=== PATIENT | female | born 1970 | race Caucasian/White ===

== ENCOUNTER → 2020-01-27 08:29 | Outpatient (BNVA) | payer OTHER, SELFPAY | PROVIDERS: Visit Provider Nurse Practitioner | DX: F31.62 Bipolar disorder, current episode mixed, moderate (principal) | CPT/HCPCS: 99214 ==

== ENCOUNTER → 2020-02-24 08:29 | Outpatient (BNVA) | payer OTHER, SELFPAY | PROVIDERS: Visit Provider Nurse Practitioner | DX: F31.62 Bipolar disorder, current episode mixed, moderate (principal) | CPT/HCPCS: 99214 ==

== ENCOUNTER → 2020-03-22 08:40 | Outpatient (BNVA) | payer OTHER, SELFPAY | PROVIDERS: Visit Provider Psychiatry & Neurology Psychiatry | DX: F41.1 Generalized anxiety disorder (principal); F33.2 Major depressive disorder, recurrent severe without psychotic features; F43.12 Post-traumatic stress disorder, chronic | CPT/HCPCS: 99204 ==

== ENCOUNTER → 2020-04-19 07:52 | Outpatient (BNVA) | payer OTHER, SELFPAY | PROVIDERS: Visit Provider Nurse Practitioner | DX: F41.1 Generalized anxiety disorder (principal); F31.62 Bipolar disorder, current episode mixed, moderate | CPT/HCPCS: 99214 ==

== ENCOUNTER → 2020-05-09 08:04 | Outpatient (BNVA) | payer OTHER, SELFPAY | PROVIDERS: PCP Physician Assistant; Visit Provider Social Worker Clinical | DX: F41.1 Generalized anxiety disorder (principal); F33.2 Major depressive disorder, recurrent severe without psychotic features | CPT/HCPCS: 90791 ==

== ENCOUNTER → 2020-05-16 08:38 | Outpatient (BNVA) | payer OTHER, SELFPAY | PROVIDERS: PCP Physician Assistant; Visit Provider Social Worker Clinical | DX: F33.2 Major depressive disorder, recurrent severe without psychotic features (principal); F41.1 Generalized anxiety disorder; F31.62 Bipolar disorder, current episode mixed, moderate | CPT/HCPCS: 90834 ==

== ENCOUNTER → 2020-05-25 08:28 | Outpatient (BNVA) | payer OTHER, SELFPAY | PROVIDERS: PCP Physician Assistant; Visit Provider Social Worker Clinical | DX: F33.2 Major depressive disorder, recurrent severe without psychotic features (principal); F41.1 Generalized anxiety disorder; F31.62 Bipolar disorder, current episode mixed, moderate | CPT/HCPCS: 90834 ==

== ENCOUNTER → 2020-06-01 08:34 | Outpatient (BNVA) | payer OTHER, SELFPAY | PROVIDERS: PCP Physician Assistant; Visit Provider Social Worker Clinical | DX: F33.2 Major depressive disorder, recurrent severe without psychotic features (principal); F41.1 Generalized anxiety disorder; F31.62 Bipolar disorder, current episode mixed, moderate | CPT/HCPCS: 90834 ==

== ENCOUNTER → 2020-06-08 10:21 | Outpatient (BNVA) | payer OTHER, SELFPAY | PROVIDERS: PCP Physician Assistant; Visit Provider Social Worker Clinical | DX: F33.2 Major depressive disorder, recurrent severe without psychotic features (principal); F41.1 Generalized anxiety disorder; F31.62 Bipolar disorder, current episode mixed, moderate | CPT/HCPCS: 90834 ==

== ENCOUNTER → 2020-06-09 09:28 | Outpatient (BNVA) | payer OTHER, SELFPAY | PROVIDERS: PCP Physician Assistant; Visit Provider Nurse Practitioner | DX: F41.1 Generalized anxiety disorder (principal); F31.62 Bipolar disorder, current episode mixed, moderate | CPT/HCPCS: 90832; 99213 ==

== ENCOUNTER → 2020-06-15 09:36 | Outpatient (BNVA) | payer OTHER, SELFPAY | PROVIDERS: PCP Physician Assistant; Visit Provider Social Worker Clinical | DX: F33.2 Major depressive disorder, recurrent severe without psychotic features (principal); F41.1 Generalized anxiety disorder; F31.62 Bipolar disorder, current episode mixed, moderate | CPT/HCPCS: 90834 ==

== ENCOUNTER → 2020-06-22 09:49 | Outpatient (BNVA) | payer OTHER, SELFPAY | PROVIDERS: PCP Physician Assistant; Visit Provider Social Worker Clinical | DX: F33.2 Major depressive disorder, recurrent severe without psychotic features (principal); F41.1 Generalized anxiety disorder; F31.62 Bipolar disorder, current episode mixed, moderate | CPT/HCPCS: 90834 ==

== ENCOUNTER → 2020-06-29 08:48 | Outpatient (BNVA) | payer OTHER, SELFPAY | PROVIDERS: PCP Physician Assistant; Visit Provider Social Worker Clinical | DX: F33.2 Major depressive disorder, recurrent severe without psychotic features (principal); F41.1 Generalized anxiety disorder; F31.62 Bipolar disorder, current episode mixed, moderate | CPT/HCPCS: 90834 ==

== ENCOUNTER → 2020-07-06 08:53 | Outpatient (BNVA) | payer OTHER, SELFPAY | PROVIDERS: PCP Physician Assistant; Visit Provider Social Worker Clinical | DX: F33.2 Major depressive disorder, recurrent severe without psychotic features (principal); F41.1 Generalized anxiety disorder; F31.62 Bipolar disorder, current episode mixed, moderate | CPT/HCPCS: 90834 ==

== ENCOUNTER → 2020-07-13 08:10 | Outpatient (BNVA) | payer OTHER, SELFPAY | PROVIDERS: PCP Physician Assistant; Visit Provider Social Worker Clinical | DX: F33.2 Major depressive disorder, recurrent severe without psychotic features (principal); F41.1 Generalized anxiety disorder; F31.62 Bipolar disorder, current episode mixed, moderate | CPT/HCPCS: 90834 ==

== ENCOUNTER → 2020-07-27 08:40 | Outpatient (BNVA) | payer OTHER, SELFPAY | PROVIDERS: PCP Physician Assistant; Visit Provider Social Worker Clinical | DX: F33.2 Major depressive disorder, recurrent severe without psychotic features (principal); F41.1 Generalized anxiety disorder; F31.62 Bipolar disorder, current episode mixed, moderate | CPT/HCPCS: 90834 ==

== ENCOUNTER → 2020-08-04 08:20 | Outpatient (BNVA) | payer OTHER, SELFPAY | PROVIDERS: PCP Physician Assistant; Visit Provider Nurse Practitioner | DX: F41.1 Generalized anxiety disorder (principal); F31.62 Bipolar disorder, current episode mixed, moderate | CPT/HCPCS: 99214 ==

== ENCOUNTER → 2020-08-10 08:18 | Outpatient (BNVA) | payer OTHER, SELFPAY | PROVIDERS: PCP Physician Assistant; Visit Provider Social Worker Clinical | DX: F33.2 Major depressive disorder, recurrent severe without psychotic features (principal); F41.1 Generalized anxiety disorder; F31.62 Bipolar disorder, current episode mixed, moderate | CPT/HCPCS: 90834 ==

== ENCOUNTER → 2020-09-22 08:28 | Outpatient (BNVA) | payer OTHER, SELFPAY | PROVIDERS: PCP Physician Assistant; Visit Provider Nurse Practitioner | DX: F41.1 Generalized anxiety disorder (principal); F31.62 Bipolar disorder, current episode mixed, moderate | CPT/HCPCS: 99213 ==

== ENCOUNTER → 2020-11-14 08:37 | Outpatient (BNVA) | payer OTHER, SELFPAY | PROVIDERS: PCP Physician Assistant; Visit Provider Nurse Practitioner | DX: F31.62 Bipolar disorder, current episode mixed, moderate (principal); F41.1 Generalized anxiety disorder; F33.2 Major depressive disorder, recurrent severe without psychotic features | CPT/HCPCS: 99214 ==

== ENCOUNTER 2020-12-15 14:57 | Outpatient (CLI) | payer OTHER, SELFPAY ==
--- NOTE | 2020-12-15 | XR_ITS ---
WS: [id number] SCREENING DEXA SCAN [facility] CLINICAL INFORMATION: POST MONOPAUSAL COMPARISON: 018 FINDINGS: The L1-L4 bone mineral density measures 0.950 g/cm2. This corresponds to a T score score of -1.9 and Z score of -2.7. Left femoral neck bone mineral density measures 0.887 g/cm2. This corresponds to a T score of -1.0 an d Z score of -1.3. Right femoral neck bone mineral density measures 0.844 g/cm2. This corresponds to a T score -1.3of an d Z score of -1.7. Mean femoral neck bone mineral density measures 0.866 g/cm2. This corresponds to a T score of -1.1 an d Z score of -1.5. XR/XR DEXA axial skeleton* [id number] IMPRESSION: Osteopenia Patient's FRAX calculated 10 year probability for major osteoporotic fracture i s 7.1 % and osteoporotic hip fracture is 0.5%.
--- NOTE | 2020-12-15 14:59 | MM_ITS ---
WS: [id number] BILATERAL SCREENING DIGITAL MAMMOGRAM WITH CAD HISTORY: SCREENING COMPARISON: None available. Bilateral CC and MLO views submitted. Computer aided detection analyzed. Breast composition: The breasts are almost entirely fatty. No suspicious masses, microcalcifications or architectural distortion. MM/[place] [id number] IMPRESSION: BI-RADS: 1-Negative FOLLOW UP: 1 Year Follow-up
== END 2020-12-15 14:58 | disposition home or self-care (01) ==
PROVIDERS: PCP Nurse Practitioner Family; Visit Provider Nurse Practitioner Family
DX: Z12.31 Encounter for screening mammogram for malignant neoplasm of breast (principal); Z78.0 Asymptomatic menopausal state; M85.88 Other specified disorders of bone density and structure, other site
CPT/HCPCS: 77067; 77080

== ENCOUNTER → 2021-01-09 10:12 | Outpatient (BNVA) | payer OTHER, SELFPAY | PROVIDERS: PCP Nurse Practitioner Family; Visit Provider Nurse Practitioner | DX: F31.62 Bipolar disorder, current episode mixed, moderate (principal); F41.1 Generalized anxiety disorder; F33.2 Major depressive disorder, recurrent severe without psychotic features | CPT/HCPCS: 99214 ==

== ENCOUNTER → 2021-01-17 11:36 | Outpatient (BNVA) | payer OTHER, SELFPAY | PROVIDERS: PCP Nurse Practitioner Family; Referring Provider Nurse Practitioner Family; Visit Provider Podiatrist Foot & Ankle Surgery | DX: M65.9 Synovitis and tenosynovitis, unspecified (principal); M25.571 Pain in right ankle and joints of right foot | CPT/HCPCS: 73630 ==

== ENCOUNTER 2021-01-17 14:59 | Outpatient (CLI) | payer OTHER, SELFPAY | END 2021-01-17 15:00 | disposition home or self-care (01) | LOC: SPT 15:00 | PROVIDERS: PCP Nurse Practitioner Family; Visit Provider Podiatrist Foot & Ankle Surgery | DX: Z46.89 Encounter for fitting and adjustment of other specified devices (principal); M65.9 Synovitis and tenosynovitis, unspecified; M25.571 Pain in right ankle and joints of right foot | CPT/HCPCS: 97760; L4361 ==

== ENCOUNTER → 2021-03-03 08:17 | Outpatient (BNVA) | payer OTHER, SELFPAY | PROVIDERS: PCP Nurse Practitioner Family; Visit Provider Nurse Practitioner | DX: F41.1 Generalized anxiety disorder (principal); F31.62 Bipolar disorder, current episode mixed, moderate; F50.81 Binge eating disorder | CPT/HCPCS: 99214 ==

== ENCOUNTER 2022-02-16 13:20 | Outpatient (CLI) | payer OTHER, SELFPAY ==
--- NOTE | 2022-02-16 13:25 | MM_ITS ---
WS: [id number] BILATERAL 3D TOMOSYNTHESIS DIGITAL SCREENING MAMMOGRAPHY WITH CAD CLINICAL INFORMATION: SCREENING HISTORY: Screening mammogram. No current complaints. COMPARISON: December 15, 2020 TECHNIQUE: Bilateral CC and MLO views. FINDINGS: Scattered fibroglandular densities bilaterally. No suspicious focal mass, asymmetry, calcifications, or architectural distortion. No evidence of malignancy. MM/[place] [id number] IMPRESSION: BI-RADS: 1-Negative FOLLOW UP: 1 Year Follow-up Recommend return to annual screening mammography.
== END 2022-02-16 13:21 | disposition home or self-care (01) ==
LOC: RAD 13:21
PROVIDERS: PCP Nurse Practitioner Family; Visit Provider Nurse Practitioner Family
DX: Z12.31 Encounter for screening mammogram for malignant neoplasm of breast (principal)
CPT/HCPCS: 77063; 77067

== ENCOUNTER → 2022-11-25 10:36 | Outpatient (BNVA) | payer OTHER, SELFPAY | PROVIDERS: PCP Nurse Practitioner Family; Visit Provider Family Medicine | DX: N12 Tubulo-interstitial nephritis, not specified as acute or chronic (principal) | CPT/HCPCS: 81000 ==

== ENCOUNTER → 2022-12-27 09:59 | Outpatient (BNVA) | payer OTHER, SELFPAY | PROVIDERS: PCP Nurse Practitioner Family; Referring Provider Nurse Practitioner Family; Visit Provider Student in an Organized Health Care Education/Training Program | DX: M20.012 Mallet finger of left finger(s) (principal) | CPT/HCPCS: 73140 ==

== ENCOUNTER 2023-11-26 08:56 | Emergency (ER) | payer OTHER, SELFPAY ==
--- NOTE | 2023-11-26 09:05 | W.ED.ABDPA2 ---
HPI - Abdominal Pain General: Chief Complaint: Abdominal Pain Stated Complaint: abd pain Time Seen by Provider: 11/26/23 08:57 Source: patient Mode of arrival: ambulatory Limitations: no limitations History of Present Illness: Patient is a very nice 53-year-old female presents to ED today with a complaint of right-sided abdominal pain. Patient states she has been dealing with this pain over the past month and states it is progressively worsening. She states she has been seen [facility] but feels like they are dragging their feet when it comes to evaluating her discomfort. She states she has never had blood work or imaging performed. Patient is concerned as pain is progressively worsening and now limiting her physical activity. 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 Patient is not having any nausea or vomiting. She was told at [facility] that she could be constipated so did do a bowel prep regimen about a week ago and states she has had some diarrhea since then. No bloody stools. She has not been running fevers. Previous abdominal surgeries include a gastric sleeve, appendectomy, cholecystectomy, hysterectomy/oophorectomy. She states she has a family history of stomach and ovarian cancers. MD elicited complaint: abdominal pain Pertinent past history: none Onset (ago): week(s) Pain Consistency: constant (with exacerbations) Location: RUQ Severity: moderate Radiation: none Migration to: no migration Exacerbating factors: eating (sometimes worsens pain) Relieving factors: nothing Associated Symptoms: Denies chills, constipation, dysuria, fever(s), hematochezia, hematemesis, melena, nausea and vomiting Related Data: Patient : No Review of Systems Const: Denies: fever(s), chills, body aches, fatigue or malaise Card: Denies: chest pain Resp: Denies: dyspnea GI: Reports: abdominal pain; Denies: nausea, vomiting, hematemesis, constipation, pain on defecation, rectal pain, hematochezia or melena : Denies: flank pain, difficulty voiding, dysuria, urinary frequency, urinary urgency or urinary hesitancy Musc: Denies: neck pain, back pain, extremity pain or joint pain Skin/Breast: Denies: rash Neuro: Denies: headache(s), numbness in extremities, weakness in extremities, sensory changes or dizziness [facility] ED PFSH: Medical History ADHD (attention deficit hyperactivity disorder), combined type Psychiatric care Binge-eating disorder, severe Bipolar disorder, current episode mixed, moderate Social History Smoking and tobacco/nicotine status: never used tobacco/nicotine Current gender identity: Female Physical Exam Const: COMMON NORMALS: no acute distress, average body habitus, patient oriented x3, no limitations, healthy appearing, alert and well nourished Eye: COMMON NORMALS: no scleral icterus Resp: COMMON NORMALS: normal respiratory effort and clear to auscultation bilaterally AUSCULTATION: clear to auscultation bilaterally Cardio: COMMON NORMALS: regular rate and regular rhythm RATE: regular rate RHYTHM: regular rhythm GI: COMMON NORMALS: Normal to inspection, nondistended, normoactive bowel sounds present, Soft to palpation, No hepatosplenomegaly present and no masses INSPECTION: Yes normal to inspection AUSCULTATION: Yes normoactive bowel sounds PALPATION: Yes Soft to palpation, Yes Tenderness to palpation present (GI) Details: RLQ and RUQ and Yes No hepatosplenomegaly present : COMMON NORMALS: Yes no CVA tenderness BLADDER/KIDNEY EXAM: Yes no CVA tenderness Back/Pelvis: COMMON NORMALS: no CVA tenderness Extremity: GENERAL: Yes normal exam except as noted Neuro: ROYAL COMA SCALE: document GCS findings [place] coma scale eye opening: Spontaneous [place] coma scale verbal response: Orientated [place] coma scale motor response: Obey commands [place] coma scale total score: 15 COMMON NORMALS: patient oriented x3 SENSORIUM/ORIENTATION: Yes alert Skin: COMMON NORMALS: no rashes or lesions noted GENERAL SKIN EXAM: no rashes or lesions noted Course Vital Signs: Vital signs: Vital Signs Temperature 98.7 F 11/26/23 09:08 Pulse Rate 83 11/26/23 09:38 Respiratory Rate 16 11/26/23 09:38 Blood Pressure 137/91 11/26/23 09:38 Pulse Oximetry 100 11/26/23 09:38 Oxygen Delivery Me thod Room Air 11/26/23 09:38 MDM - Abdominal Pain Medical Decision Making Blood work is completely unremarkable. Her vital signs are normal. CT scan of her abdomen/pelvis is unremarkable. She questions whether she may have developed a stomach ulcer as she states she took some Aleve and steroids for a bout of pneumonia approximately a month ago which she states she is not supposed to do given her gastric sleeve. She does feel like pain somewhat worsens with eating. I think it is reasonable to trial her on some Protonix. She is agreeable to this plan. Recommend follow-up with primary care in 1 to 2 weeks so they can reassess symptoms. I think it is also reasonable to consider an endoscopy at some point. Medical Records I reviewed the patient's medical records. Lab Data I reviewed the patient's lab results. 11/26/23 09:22 11/26/23 09:22 Labs/Radiology: Laboratory Results WBC 4.42 10^3/uL (3.29-11.43) 11/26/23 09:22 RBC 5.21 10^6/uL (3.85-5.65) 11/26/23 09:22 Hgb 14.60 g/dL (11.27-16.99) 11/26/23 09:22 Hct 45.8 % (36-47) 11/26/23 09:22 MCV 87.9 fl (85-98) 11/26/23 09:22 MCH 28.0 pg (27-33) 11/26/23 09:22 MCHC 31.9 g/dL (30-55) 11/26/23 09:22 RDW 12.0 % (12.1-15.1) L 11/26/23 09:22 Plt Count 244 10^3/cmm (157-399) 11/26/23 09:22 MPV 10.7 fL (7.4-10.4) H 11/26/23 09:22 Neut % (Auto) 60.0 % 11/26/23 09:22 Lymph % (Auto) 30.3 % 11/26/23 09:22 [place] % (Auto) 6.1 % 11/26/23 09:22 Eos % (Auto) 2.3 % 11/26/23 09:22 Baso % (Auto) 1.1 % 11/26/23 09:22 Neut # (Auto) 2.65 10^3/uL (1.8-7.7) 11/26/23 09:22 Lymph # (Auto) 1.3 10^3/uL (0.8-4.8) 11/26/23 09:22 [place] # (Auto) 0.3 10^3/uL (0.2-0.9) 11/26/23 09:22 Eos # (Auto) 0.1 10^3/uL (0.0-0.8) 11/26/23 09:22 Baso # (Auto) 0.1 10^3/uL (0.0-0.1) 11/26/23 09:22 Nucleated RBC % (auto) 0 % 11/26/23 09:22 Nucleated RBCs # 0.0 /100WBC 11/26/23 09:22 Sodium 139 mmol/L (136-145) 11/26/23 09:22 Potassium 3.8 mmol/L (3.5-5.1) 11/26/23 09:22 Chloride 104 mmol/L (98-107) 11/26/23 09:22 Carbon Dioxide 27 mmol/L (22-29) 11/26/23 09:22 Anion Gap 11.8 (5-19) 11/26/23 09:22 BUN 8 mg/dL (6-20) 11/26/23 09:22 Creatinine 0.6 mg/dL (0.5-0.9) 11/26/23 09:22 GFR Calculation 105.0 mL/min (90-130) 11/26/23 09:22 Glucose 93 mg/dL (65-115) 11/26/23 09:22 Calculated Osmolality 286 mOsm/kg (285-295) 11/26/23 09:22 Calcium 8.8 mg/dL (8.5-10.5) 11/26/23 09:22 Total Bilirubin 0.4 mg/dL (0.15-1.2) 11/26/23 09:22 AST 19 U/L (0-32) 11/26/23 09:22 ALT 14 U/L (0-33) 11/26/23 09:22 Alkaline Phosphatase 71 U/L (35-105) 11/26/23 09:22 Total Protein 6.8 g/dL (6.6-8.7) 11/26/23 09:22 Albumin 4.2 g/dL (3.5-5.2) 11/26/23 09:22 Globulin 2.6 g/dL (1.3-4.6) 11/26/23 09:22 Lipase 37 U/L (13-60) 11/26/23 09:22 Urine Color Light yellow (Yellow) 11/26/23 09:13 Urine Appearance Clear (CLEAR) 11/26/23 09:13 Urine pH 8 (5-7) H 11/26/23 09:13 Ur Specific [place] 1.015 (1.005-1.030) 11/26/23 09:13 Urine Protein Neg (Negative) 11/26/23 09:13 Urine Glucose (UA) Norm (Normal) 11/26/23 09:13 Urine Ketones Negative (Negative) 11/26/23 09:13 Urine Blood Neg (Negative) 11/26/23 09:13 Urine Nitrate Negative (Negative) 11/26/23 09:13 Urine Bilirubin Neg (Negative) 11/26/23 09:13 Prot Sulfosalicylic Acd Negative (Negative) 11/26/23 09:13 Urine Urobilinogen Norm mg/dL (Negative) 11/26/23 09:13 Ur Leukocyte Esterase Negative (Negative) 11/26/23 09:13 All radiology interpretation(s) finalized by discharge Discharge Plan Discharge Patient Disposition: Home Clinical Impression: Acute upper abdominal pain Condition: Stable Prescriptions: New Protonix 40 mg tablet,delayed release (DR/EC) 40 mg PO DAILY 28 Days Qty: 28 0RF No Action Tylenol Ex Str Rapid Release 500 mg Tablet 500 mg PO Q6H PRN (Reason: Pain) Calcium 500 + D (D3) 500 mg-3.125 mcg (125 unit) Tablet 2 tab PO DAILY Vyvanse 60 mg capsule 60 mg PO QAM Discharge Orders: Discharge ED (Routine); Ordered 11/26/23 Ordered By: Rose Teixeira Referrals: Zaira Espinosa FNP [Primary Care Provider] - Patient Instructions: Abdominal Pain (ED) Activity Restrictions/Additional Instructions: As we discussed we will trial you on a stomach medication to see if this helps with any of your discomfort. Please follow-up with your primary care provider for further evaluation and further testing if medications do not seem to help your discomfort. Coding Level of Care Code ED Conference Organizer for Dilcia Elizabeth
[2023-11-26 09:06] VITALS: BMI 21.7
[2023-11-26 09:08] VITALS: BP 137/91; PULSE 88; RESP 16; TEMP 37.1; O2SAT 98
--- NOTE | 2023-11-26 09:13 | CT_ITS ---
WS: [id number] CT ABDOMEN AND PELVIS WITH CONTRAST HISTORY: R sided abdominal pain TECHNIQUE: Imaging performed of the abdomen and pelvis with IV contrast. Single phase imaging of the abdomen. Coronal and sagittal reformats are submitted. All CT scans at [facility] use at [address] one of these dose optimization techniques: automated exposure control; mA and/or kV adjustment per patient size (includes targeted exams where dose is matched to clinical indication); or iterative re construction. IV CONTRAST: Omnipaque 350; 100 mL IV. Oral contrast: No. DLP: 391.07 mGy.cm COMPARISON: None available. Lower thorax: Lung bases are clear. Heart is normal size. Small hiatal hernia. Prior gastric surgery. Liver/biliary system: Normal size with no intrahepatic dilatation. Gallbladder: Cholecystectomy. Pancreas: Normal size pancreas and pancreatic duct. No adjacent inflammation. Spleen: Normal size spleen. No mass or infarct. Adrenal glands: Normal. Right kidney: Normal. Left kidney: Normal. Aorta: Normal. Lymphadenopathy: None. Free fluid: None. GI tract: Prior appendectomy. Moderate diffuse constipation. No colitis. Abdominal wall: Unremarkable abdominal wall. No hernia. Pelvis: Prior hysterectomy. Negative urinary bladder. Bones: Unremarkable. IMPRESSION: 1. Status post cholecystectomy and appendectomy. 2. Diffuse constipation. 3. No free air or free fluid. 4. Small hiatal hernia and prior gastric surgery. 5. Prior hysterectomy.
[2023-11-26 09:27] LABS: Add Urine Microscopic? NO; Charge for UA Resulting for Rev
[2023-11-26 09:38] VITALS: BP 137/91; PULSE 83; RESP 16; O2SAT 100
[2023-11-26 09:39] LABS: Basophils # 0.1 10^3/uL (0.0-0.1); Basophils % 1.1 %; Eosinophils # 0.1 10^3/uL (0.0-0.8); Eosinophils % 2.3 %; Hematocrit 45.8 % (36-47); Lymphocytes # 1.3 10^3/uL (0.8-4.8); Lymphocytes % 30.3 %; Mean Corpuscular HGB Conc 31.9 g/dL (30-55); Mean Corpuscular Volume 87.9 fl (85-98); Mean Platelet Volume 10.7 fL (7.4-10.4); Monocytes # 0.3 10^3/uL (0.2-0.9); Monocytes % 6.1 %; Neutrophils # 2.65 10^3/uL (1.8-7.7); Nucleated Red Blood Cells % 0 %; Platelet Count 244 10^3/cmm (157-399); Red Blood Count 5.21 10^6/uL (3.85-5.65); White Blood Count 4.42 10^3/uL (3.29-11.43)
--- NOTE | 2023-11-26 09:49 | PC.PHAR ---
pt states she takes care of her own medications-pt states no longer takes lexapro 10mg daily ext shows filled 09/25/23 90d/s pt states she took for 2 days but made her panic attacks worse so she stop taking after 2 doses-pt states only takes one prescription medication vyvanse 60mg daily
[2023-11-26] MEDS: iohexol 350 mg/mL 500 mL Btl (per mL) IV (09:58)
[2023-11-26 10:01] LABS: Urine Appearance Clear (CLEAR); Urine Color Light yellow (Yellow)
[2023-11-26 10:02] LABS: Bilirubin Urine Neg (Negative); Blood Urine Neg (Negative); Glucose Urine UA Norm (Normal); Ketones Urine Negative (Negative); Leukocyte Esterase Urine Negative (Negative); Nitrate Urine Negative (Negative); Protein Urine Neg (Negative); Specific Gravity, Urine 1.015 (1.005-1.030); Sulfosalicylic Acid Urine Negative (Negative); Urobilinogen Urine Norm (Negative); pH Urine 8 (5-7)
[2023-11-26 10:05] LABS: Alanine Aminotransferase 14 U/L (0-33); Albumin Level 4.2 g/dL (3.5-5.2); Alkaline Phosphatase 71 U/L (35-105); Anion Gap 11.8 (5-19); Aspartate Amino Transferase 19 U/L (0-32); Blood Urea Nitrogen 8 mg/dL (6-20); Calcium 8.8 mg/dL (8.5-10.5); Carbon Dioxide 27 mmol/L (22-29); Chloride 104 mmol/L (98-107); Globulin 2.6 g/dL (1.3-4.6); Glucose 93 mg/dL (65-115); Lipase 37 U/L (13-60); Osmolality Calculated 286 mOsm/kg (285-295); Potassium 3.8 mmol/L (3.5-5.1); Sodium 139 mmol/L (136-145); Total Bilirubin 0.4 mg/dL (0.15-1.2); Total Protein 6.8 g/dL (6.6-8.7)
== END 2023-11-26 11:06 | disposition home or self-care (01) ==
PROVIDERS: Emergency Provider Physician Assistant; PCP Nurse Practitioner Family
DX: R10.10 Upper abdominal pain, unspecified (principal)
CPT/HCPCS: 74177; 80053; 81003; 83690; 85025; 99285; Q9967

== ENCOUNTER 2024-01-03 13:42 | Outpatient (CLI) | payer OTHER, SELFPAY ==
--- NOTE | 2024-01-03 13:46 | MM_ITS ---
WS: [id number] BILATERAL 3D TOMOSYNTHESIS DIGITAL SCREENING MAMMOGRAPHY WITH CAD CLINICAL INFORMATION: SCREENING HISTORY: Screening mammogram. No current complaints. COMPARISON: 02/16/2022 TECHNIQUE: Bilateral CC and MLO views. FINDINGS: Scattered fibroglandular densities bilaterally. No suspicious focal mass, asymmetry, calcifications, or architectural distortion. No evidence of malignancy. Incidental punctate calcification LEFT breast . IMPRESSION: MM/[place] [id number] BI-RADS: 2-Benign FOLLOW UP: 1 Year Follow-up Recommend return to annual screening mammography.
== END 2024-01-03 13:43 | disposition home or self-care (01) ==
LOC: RAD 13:43
PROVIDERS: PCP Nurse Practitioner Family; Visit Provider Nurse Practitioner Family
DX: Z12.31 Encounter for screening mammogram for malignant neoplasm of breast (principal)
CPT/HCPCS: 77063; 77067

== ENCOUNTER 2024-02-28 12:13 | Outpatient (CLI) | payer OTHER, SELFPAY ==
--- NOTE | 2024-02-28 12:27 | XR_ITS ---
WS: [id number] DEXA (DUAL ENERGY X-RAY ABSORPTIOMETRY) Bone mineral density was performed using a [email or web address] machine. HISTORY: POSTMENOPAUSAL COMPARISON: 12/15/2020 Lumbar spine BMD (L1-L4): 0.931 g/cm2 T score: -2.1 Z score: -1.5 Total hip BMD: Left: 0.758 g/cm2. T score: -2.0 Z score: -1.5 Right: 0.733 g/cm2. T score: -2.2 Z score: -1.7 10 year probability of a major osteoporotic fracture is 11.2%. Compared to the prior study from 12/15/2020. Lumbar spine bone mineral density has decreased by 2.0%. Bilateral hips bone mineral density has decreased by 14.0%. XR/XR DEXA axial skeleton* [id number] IMPRESSION: OSTEOPENIA based upon the WHO classification for females. Significant decrease in bone mineral density within the hips and the lumbar spi ne since the prior study.
== END 2024-02-28 12:14 | disposition home or self-care (01) ==
LOC: RAD 12:13
PROVIDERS: PCP Nurse Practitioner Family; Visit Provider Nurse Practitioner Family
DX: Z78.0 Asymptomatic menopausal state (principal); M85.88 Other specified disorders of bone density and structure, other site
CPT/HCPCS: 77080

== ENCOUNTER 2025-08-18 07:47 | Outpatient (CLI) | payer OTHER, SELFPAY ==
--- NOTE | 2025-08-18 07:52 | MM_ITS ---
WS: [id number] BILATERAL SCREENING DIGITAL TOMOSYNTHESIS MAMMOGRAM WITH CAD HISTORY: ANNUAL SCREENING COMPARISON: 01/01/2024, 02/16/2022, 12/15/2020 Bilateral CC and MLO views with tomosynthesis and synthetic mammography submitted. Computer aided detection analyzed. Breast composition: The breasts are almost entirely fatty. No suspicious masses, microcalcifications or architectural distortion. Benign calcification anterior LEFT breast. MM/MM scr BI tomosynthesis [id number] IMPRESSION: BI-RADS: 2 - Benign. FOLLOW UP: 1 Year Follow-up
== END 2025-08-18 07:48 | disposition home or self-care (01) ==
LOC: RAD 07:49
PROVIDERS: PCP Nurse Practitioner Family; Visit Provider Nurse Practitioner Family
DX: Z12.31 Encounter for screening mammogram for malignant neoplasm of breast (principal); R92.313 Mammographic fatty tissue density, bilateral breasts; R92.1 Mammographic calcification found on diagnostic imaging of breast; N64.89 Other specified disorders of breast
CPT/HCPCS: 77063; 77067